=== PATIENT | male | born 1950 | race American Indian/Alaskan Native ===

== ENCOUNTER 2017-09-01 09:31 | Emergency (ER) | payer MEDICARE ==
[2017-09-01] MEDS ORDERED: ZOFRAN IV ONE ×2 (10:14→13:23)
--- NOTE | 2017-09-01 10:19 | Emergency Department Report ---
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 Patient presented to the ER complaining of left flank and left upper quadrant pain this been going on and off for one week. Patient stated that he suffer from constipation. He denied any fever or vomiting. No no diarrhea also. MD Complaint: abdominal pain, flank pain -: week(s) Location: LUQ, L flank Radiation: none Migration to: no migration Severity: moderate Quality: cramping Consistency: intermittent Improves With: bowel movement Associated Symptoms: nausea, constipation - Related Data Home Medications Medication Instructions Recorded Confirmed Last Taken Amiodarone [Cordarone 200 MG TAB] 200 mg PO DAILY 08/12/17 08/12/17 Unknown Arformoterol Nebu [Brovana Nebu] 15 mcg IH Q12HR 08/12/17 08/12/17 Unknown Aspirin [Adult Low Dose Aspirin EC] 81 mg PO DAILY 08/12/17 08/12/17 Unknown AtorvaSTATin [Lipitor] 40 mg PO QHS 08/12/17 08/12/17 Unknown Digoxin [Digox] 125 mcg PO DAILY 08/12/17 08/12/17 Unknown Docusate Sodium [Colace CAP] 100 mg PO BID PRN 08/12/17 08/12/17 Unknown Ferrous Sulfate [Feosol 325 MG tab] 325 mg PO QDAY 08/12/17 08/12/17 Unknown Fluticasone/Vilanterol [Breo 1 each IH DAILY 08/12/17 08/12/17 Unknown Ellipta 200-25 Mcg INH] Furosemide [Lasix] 80 mg PO DAILY 08/12/17 08/12/17 Unknown Ipratropium/Albuterol Sulfate 1 ampul IH Q6HR 08/12/17 08/12/17 Unknown [DUONEB *Not for PRN Use*] Lactulose [Cephulac] 20 gm PO Q12H 08/12/17 08/12/17 Unknown Linagliptin [Tradjenta] 5 mg PO QDAY 08/12/17 08/12/17 Unknown Montelukast Sodium [Singulair] 5 mg PO DAILY 08/12/17 08/12/17 Unknown Omeprazole 40 mg PO BID 08/12/17 08/12/17 Unknown Quetiapine Fumarate [SEROquel] 100 mg PO QDAY 08/12/17 08/12/17 Unknown Rivaroxaban [Xarelto] 20 mg PO QDAY 08/12/17 08/12/17 Unknown oxyCODONE /ACETAMINOPHEN [Percocet 1 tab PO Q6HR PRN 08/12/17 08/12/17 Unknown 5/325 mg] Previous Rx's Medication Instructions Recorded Last Taken Type Furosemide [Lasix TAB] 40 mg PO QDAY #30 tablet 08/16/17 Unknown Rx Levofloxacin [Levaquin TAB] 500 mg PO QDAY #5 tablet 08/16/17 Unknown Rx Metoprolol [Lopressor TAB] 50 mg PO BID #60 tablet 08/16/17 Unknown Rx Potassium Chloride 10 meq PO QDAY #30 capsule.er 08/16/17 Unknown Rx Lactulose 10 gm PO DAILY PRN #150 ml 09/01/17 Unknown Rx Allergies Allergy/AdvReac Type Severity Reaction Status Date / Time ibuprofen Allergy Unknown Verified 08/12/17 14:35 tetracycline Allergy Unknown Verified 08/12/17 14:35 ED Review of Systems ROS: Stated complaint: ABDOMINAL PAIN Other details as noted in HPI Comment: All other systems reviewed and negative Constitutional: denies: chills, fever Respiratory: denies: cough, orthopnea, shortness of breath, SOB with exertion, wheezing Cardiovascular: denies: chest pain, palpitations Gastrointestinal: abdominal pain, nausea. denies: vomiting, diarrhea, constipation, hematemesis, melena, hematochezia Genitourinary: denies: urgency, dysuria Musculoskeletal: denies: back pain Neurological: denies: headache, weakness ED Past Medical Hx - Past Medical History Hx Hypertension: Yes Hx Heart Attack/AMI: No Hx Congestive Heart Failure: Yes Hx Diabetes: Yes Hx Deep Vein Thrombosis: No Hx Pulmonary Embolism: No Hx Asthma: No Hx COPD: Yes Hx Tuberculosis: No Additional medical history: afib - Surgical History Hx Coronary Stent: No Hx Pacemaker: No Hx Internal Defibrillator: No Additional Surgical History: Right BKA - Social History Smoking Status: Current Every Day Smoker - Medications Home Medications: Home Medications Medication Instructions Recorded Confirmed Last Taken Type Amiodarone [Cordarone 200 MG TAB] 200 mg PO DAILY 08/12/17 08/12/17 Unknown History Arformoterol Nebu [Brovana Nebu] 15 mcg IH Q12HR 08/12/17 08/12/17 Unknown History Aspirin [Adult Low Dose Aspirin EC] 81 mg PO DAILY 08/12/17 08/12/17 Unknown History AtorvaSTATin [Lipitor] 40 mg PO QHS 08/12/17 08/12/17 Unknown History Digoxin [Digox] 125 mcg PO DAILY 08/12/17 08/12/17 Unknown History Docusate Sodium [Colace CAP] 100 mg PO BID PRN 08/12/17 08/12/17 Unknown History Ferrous Sulfate [Feosol 325 MG tab] 325 mg PO QDAY 08/12/17 08/12/17 Unknown History Fluticasone/Vilanterol [Breo 1 each IH DAILY 08/12/17 08/12/17 Unknown History Ellipta 200-25 Mcg INH] Furosemide [Lasix] 80 mg PO DAILY 08/12/17 08/12/17 Unknown History Ipratropium/Albuterol Sulfate 1 ampul IH Q6HR 08/12/17 08/12/17 Unknown History [DUONEB *Not for PRN Use*] Lactulose [Cephulac] 20 gm PO Q12H 08/12/17 08/12/17 Unknown History Linagliptin [Tradjenta] 5 mg PO QDAY 08/12/17 08/12/17 Unknown History Montelukast Sodium [Singulair] 5 mg PO DAILY 08/12/17 08/12/17 Unknown History Omeprazole 40 mg PO BID 08/12/17 08/12/17 Unknown History Quetiapine Fumarate [SEROquel] 100 mg PO QDAY 08/12/17 08/12/17 Unknown History Rivaroxaban [Xarelto] 20 mg PO QDAY 08/12/17 08/12/17 Unknown History oxyCODONE /ACETAMINOPHEN [Percocet 1 tab PO Q6HR PRN 08/12/17 08/12/17 Unknown History 5/325 mg] Furosemide [Lasix TAB] 40 mg PO QDAY #30 tablet 08/16/17 Unknown Rx Levofloxacin [Levaquin TAB] 500 mg PO QDAY #5 tablet 08/16/17 Unknown Rx Metoprolol [Lopressor TAB] 50 mg PO BID #60 tablet 08/16/17 Unknown Rx Potassium Chloride 10 meq PO QDAY #30 capsule.er 08/16/17 Unknown Rx Lactulose 10 gm PO DAILY PRN #150 ml 09/01/17 Unknown Rx ED Physical Exam - General Limitations: Physical Limitation General appearance: alert, in no apparent distress - Head Head exam: Present: atraumatic, normocephalic, normal inspection - Eye Eye exam: Present: normal appearance - ENT ENT exam: Present: normal exam, normal orophraynx, mucous membranes moist - Neck Neck exam: Present: normal inspection, full ROM. Absent: tenderness, meningismus, lymphadenopathy, thyromegaly - Respiratory Respiratory exam: Present: normal lung sounds bilaterally. Absent: respiratory distress, wheezes, rales, rhonchi, stridor, chest wall tenderness, accessory muscle use, decreased breath sounds, prolonged expiratory - Cardiovascular Cardiovascular Exam: Present: regular rate, normal rhythm, normal heart sounds - GI/Abdominal GI/Abdominal exam: Present: soft, normal bowel sounds. Absent: distended, tenderness, guarding, rebound, rigid, organomegaly, mass, bruit, pulsatile mass , hernia - Extremities Exam Extremities exam: Present: normal inspection, full ROM, normal capillary refill - Back Exam Back exam: Present: normal inspection, full ROM. Absent: tenderness, CVA tenderness (R), CVA tenderness (L), muscle spasm - Neurological Exam Neurological exam: Present: alert, oriented X3, CN II-XII intact, reflexes normal - Skin Skin exam: Present: warm, intact, normal color ED Course Vital Signs 09/01/17 09/01/17 09/01/17 10:03 10:16 10:30 Temperature Pulse Rate 74 78 Respiratory 17 19 Rate Blood Pressure 105/56 110/65 110/65 O2 Sat by Pulse Oximetry 09/01/17 09/01/17 09/01/17 10:46 11:00 11:16 Temperature Pulse Rate 73 72 72 Respiratory 13 14 15 Rate Blood Pressure 104/54 104/54 97/59 O2 Sat by Pulse Oximetry 09/01/17 09/01/17 09/01/17 11:30 11:46 12:00 Temperature 98.6 F Pulse Rate 79 77 76 Respiratory 12 18 21 Rate Blood Pressure 97/59 109/58 102/51 O2 Sat by Pulse 100 Oximetry 09/01/17 09/01/17 09/01/17 12:16 12:30 12:46 Temperature Pulse Rate 73 74 74 Respiratory 17 16 16 Rate Blood Pressure 106/52 106/52 128/57 O2 Sat by Pulse Oximetry 09/01/17 09/01/17 09/01/17 15:01 15:52 16:00 Temperature Pulse Rate Respiratory Rate Blood Pressure 105/71 105/71 105/71 O2 Sat by Pulse 97 97 Oximetry 09/01/17 09/01/17 09/01/17 16:16 16:30 16:46 Temperature Pulse Rate Respiratory Rate Blood Pressure 105/71 105/71 105/71 O2 Sat by Pulse 98 97 98 Oximetry 09/01/17 09/01/17 09/01/17 17:00 17:16 17:30 Temperature Pulse Rate Respiratory Rate Blood Pressure 105/71 105/71 105/71 O2 Sat by Pulse 97 96 96 Oximetry 09/01/17 09/01/17 09/01/17 17:46 18:00 18:16 Temperature Pulse Rate Respiratory Rate Blood Pressure 105/71 120/62 120/62 O2 Sat by Pulse 98 96 97 Oximetry 09/01/17 18:30 Temperature Pulse Rate Respiratory Rate Blood Pressure 120/62 O2 Sat by Pulse 99 Oximetry ED Medical Decision Making - Lab Data Result diagrams: 09/01/17 10:35 09/01/17 10:35 - Radiology Data Radiology results: report reviewed CT abdomen and pelvis with contrast showed a left renal cyst and no acute abnormalities. Critical care attestation.: If time is entered above; I have spent that time in minutes in the direct care of this critically ill patient, excluding procedure time. ED Disposition Clinical Impression: Abdominal pain, Constipation Disposition: DC-01 TO HOME OR SELFCARE Is pt being admited?: No Condition: Stable Instructions: Constipation (ED), High Fiber Diet (ED), Abdominal Pain (ED) Prescriptions: Lactulose 10 gm PO DAILY PRN #150 ml PRN Reason: Constipation Referrals: PRIMARY CARE, [Primary Care Provider] - 3-5 Days
[2017-09-01 11:05] LABS: Hematocrit 25.7 % (35.5-45.6); Hemoglobin 8.5 gm/dl (11.8-15.2); Mean Corpuscular HGB Conc 33 % (32-34); Mean Corpuscular Hemoglobin 29 pg (28-32); Mean Corpuscular Volume 89 fl (84-94); Platelet Count 303 K/mm3 (140-440)
[2017-09-01 11:06] LABS: Red Cell Distribution Width 25.5 % (13.2-15.2)
[2017-09-01 11:15] LABS: Alanine Aminotransferase 12 units/L (7-56); BUN/Creatinine Ratio 20; Bilirubin,Direct < 0.2 mg/dL (0-0.2); Blood Urea Nitrogen 10 mg/dL (9-20); Calcium 9.1 mg/dL (8.4-10.2); Hemolysis Index 15; Lipase 12 units/L (13-60)
[2017-09-01] MEDS ORDERED: MORPHINE IV ONE (13:23)
[2017-09-01 14:41] LABS: Anisocytosis 2+; Hypochromasia 1+; Platelet Estimate Consistent w Auto; Total Cells Counted 100
--- NOTE | 2017-09-01 18:35 | Cat Scan Report ---
FINAL REPORT EXAM: CT ABDOMEN PELVIS W CON HISTORY: abdominal pain TECHNIQUE: CT of the abdomen and pelvis intravenous contrast PRIORS: No prior studies available for comparison FINDINGS: There limitation in the exam due to artifact secondary to patient body habitus. There is significant artifact along the right side of the abdomen wall. Within the limits of the study no focal abnormalities identified within the liver spleen or pancreas. The upper pole left kidney there is a 5.5 x 6.1 centimeter cystic focus. No definitive solid components or nodularity identified. There is a probable thin septation. Right kidney demonstrates no focal abnormality. There is no evidence for hydronephrosis bilaterally. No evidence for colonic or small bowel distention. No free-fluid or free air identified. The abdominal aorta is normal in caliber. Urinary bladder is unremarkable. IMPRESSION: Left renal cyst No acute abnormality identified
[2017-09-01 21:25] VITALS: BP 156/44
== END 2017-09-01 21:23 | disposition home or self-care (01) ==
LOC: ED 09:31
DX: R10.12 Left upper quadrant pain (principal); K59.00 Constipation, unspecified; R11.0 Nausea; J44.9 Chronic obstructive pulmonary disease, unspecified; I48.91 Unspecified atrial fibrillation; I11.0 Hypertensive heart disease with heart failure; I50.9 Heart failure, unspecified; E11.9 Type 2 diabetes mellitus without complications; F17.200 Nicotine dependence, unspecified, uncomplicated; Z88.6 Allergy status to analgesic agent; Z88.1 Allergy status to other antibiotic agents; Z89.511 Acquired absence of right leg below knee; Z74.01 Bed confinement status
CPT/HCPCS: 36415; 74177; 80048; 80074; 83690; 85007; 85025; 96365; 96375; 96376; 99284; J2270; J2405; Q9967; 96374

== ENCOUNTER 2017-10-28 13:22 | Inpatient (IN) | payer MEDICARE ==
--- NOTE | 2017-10-28 14:43 | Emergency Department Report ---
ED Recheck HPI - General Chief Complaint: Recheck/Abnormal Lab/Rx Stated Complaint: LOW H&H Time Seen by Provider: 10/28/17 14:18 Source: patient, EMS Mode of arrival: Stretcher Limitations: No Limitations - History of Present Illness Initial Comments: Patient said he was called by his doctor office to go to the emergency room due to low hemoglobin. He said he's been tired recently and this morning he had chest pain which has resolved currently. Patient said he had colonoscopy 3 weeks ago showed that he was bleeding from his lower G.I. tract. MD Complaint: abnormal lab -: Gradual Returns Today for: CBOAL Symptoms Since Prior Visit: no new symptoms Context: called for abnorm lab res Associated Symptoms: chest pain, shortness of breath - Related Data Home Medications Medication Instructions Recorded Confirmed Last Taken Amiodarone [Cordarone 200 MG TAB] 200 mg PO DAILY 08/12/17 09/30/17 Unknown Arformoterol Nebu [Brovana Nebu] 15 mcg IH Q12HR 08/12/17 09/30/17 Unknown AtorvaSTATin [Lipitor] 40 mg PO QHS 08/12/17 09/30/17 Unknown Digoxin [Digox] 125 mcg PO DAILY 08/12/17 09/30/17 Unknown Docusate Sodium [Colace CAP] 100 mg PO BID PRN 08/12/17 09/30/17 Unknown Linagliptin [Tradjenta] 5 mg PO QDAY 08/12/17 09/30/17 Unknown Montelukast Sodium [Singulair] 5 mg PO DAILY 08/12/17 09/30/17 Unknown Lactulose 15 ml PO DAILY PRN 09/30/17 09/30/17 Unknown Omeprazole 20 mg PO BID 09/30/17 09/30/17 Unknown Pregabalin [Lyrica] 75 mg PO BID 09/30/17 09/30/17 Unknown metOLazone [Metolazone] 2.5 mg PO 3XW 09/30/17 09/30/17 Unknown Ipratropium [place] [Atrovent Hfa] 2 puff IH QID 10/28/17 10/28/17 Unknown Ipratropium/Albuterol Sulfate 1 ampul IH Q6H PRN 10/28/17 10/28/17 Unknown [DUONEB *Not for PRN Use*] Previous Rx's Medication Instructions Recorded Last Taken Type Metoprolol [Lopressor TAB] 50 mg PO BID #60 tablet 08/16/17 Unknown Rx Potassium Chloride 10 meq PO QDAY #30 capsule.er 08/16/17 Unknown Rx Clopidogrel [Plavix] 75 mg PO QDAY #30 tablet 10/14/17 Unknown Rx ISOSORBIDE MONOnitrate [Imdur ER] 30 mg PO QDAY #30 tablet 10/14/17 Unknown Rx Rivaroxaban [Xarelto] 20 mg PO QDAY #30 tablet 10/14/17 Unknown Rx oxyCODONE /ACETAMINOPHEN [Percocet 1 tab PO TID PRN #10 tablet 10/14/17 Unknown Rx 5/325 mg] Allergies Allergy/AdvReac Type Severity Reaction Status Date / Time ibuprofen Allergy Unknown Verified 08/12/17 14:35 tetracycline Allergy Unknown Verified 08/12/17 14:35 ED Review of Systems ROS: Stated complaint: LOW H&H Other details as noted in HPI Comment: All other systems reviewed and negative Constitutional: denies: chills, fever Eyes: denies: eye pain ENT: denies: ear pain, dental pain Respiratory: shortness of breath. denies: cough Cardiovascular: chest pain, dyspnea on exertion Endocrine: no symptoms reported Gastrointestinal: denies: abdominal pain, nausea, vomiting, diarrhea Genitourinary: denies: urgency, dysuria Musculoskeletal: denies: back pain, joint swelling Skin: denies: rash, lesions Neurological: denies: headache, weakness, numbness Psychiatric: denies: anxiety, depression Hematological/Lymphatic: denies: easy bleeding, easy bruising ED Past Medical Hx - Past Medical History Hx Hypertension: Yes Hx Heart Attack/AMI: No Hx Congestive Heart Failure: Yes Hx Diabetes: Yes Hx Deep Vein Thrombosis: No Hx Pulmonary Embolism: Yes Hx Asthma: No Hx COPD: Yes Hx Tuberculosis: No Additional medical history: afib - Surgical History Hx Coronary Stent: No Hx Pacemaker: No Hx Internal Defibrillator: No Additional Surgical History: Right BKA - Social History Smoking Status: Never Smoker Substance Use Type: None - Medications Home Medications: Home Medications Medication Instructions Recorded Confirmed Last Taken Type Amiodarone [Cordarone 200 MG TAB] 200 mg PO DAILY 08/12/17 09/30/17 Unknown History Arformoterol Nebu [Brovana Nebu] 15 mcg IH Q12HR 08/12/17 09/30/17 Unknown History AtorvaSTATin [Lipitor] 40 mg PO QHS 08/12/17 09/30/17 Unknown History Digoxin [Digox] 125 mcg PO DAILY 08/12/17 09/30/17 Unknown History Docusate Sodium [Colace CAP] 100 mg PO BID PRN 08/12/17 09/30/17 Unknown History Linagliptin [Tradjenta] 5 mg PO QDAY 08/12/17 09/30/17 Unknown History Montelukast Sodium [Singulair] 5 mg PO DAILY 08/12/17 09/30/17 Unknown History Metoprolol [Lopressor TAB] 50 mg PO BID #60 tablet 08/16/17 09/30/17 Unknown Rx Potassium Chloride 10 meq PO QDAY #30 capsule.er 08/16/17 09/30/17 Unknown Rx Lactulose 15 ml PO DAILY PRN 09/30/17 09/30/17 Unknown History Omeprazole 20 mg PO BID 09/30/17 09/30/17 Unknown History Pregabalin [Lyrica] 75 mg PO BID 09/30/17 09/30/17 Unknown History metOLazone [Metolazone] 2.5 mg PO 3XW 09/30/17 09/30/17 Unknown History Clopidogrel [Plavix] 75 mg PO QDAY #30 tablet 10/14/17 Unknown Rx ISOSORBIDE MONOnitrate [Imdur ER] 30 mg PO QDAY #30 tablet 10/14/17 Unknown Rx Rivaroxaban [Xarelto] 20 mg PO QDAY #30 tablet 10/14/17 Unknown Rx oxyCODONE /ACETAMINOPHEN [Percocet 1 tab PO TID PRN #10 tablet 10/14/17 Unknown Rx 5/325 mg] Ipratropium [place] [Atrovent Hfa] 2 puff IH QID 10/28/17 10/28/17 Unknown History Ipratropium/Albuterol Sulfate 1 ampul IH Q6H PRN 10/28/17 10/28/17 Unknown History [DUONEB *Not for PRN Use*] ED Physical Exam - General Limitations: No Limitations General appearance: alert, in no apparent distress, obese - Head Head exam: Present: atraumatic, normocephalic, normal inspection - Eye Eye exam: Present: PERRL, EOMI, other (Pale conjunctivae) Pupils: Present: normal accommodation - ENT ENT exam: Present: normal exam, normal orophraynx, mucous membranes moist - Neck Neck exam: Present: normal inspection, full ROM. Absent: tenderness - Respiratory Respiratory exam: Present: normal lung sounds bilaterally. Absent: respiratory distress, wheezes, rales, rhonchi, stridor - Cardiovascular Cardiovascular Exam: Present: regular rate, normal rhythm, normal heart sounds - GI/Abdominal GI/Abdominal exam: Present: soft, distended, normal bowel sounds. Absent: tenderness, guarding, rebound, rigid - Rectal Rectal exam: Present: normal inspection, normal rectal tone, heme (-) stool, other ([place] was Ms. Morgan RN.). Absent: black stool, bloody stool, hemorrhoids, mass, tenderness - Extremities Exam Extremities exam: Present: normal inspection, full ROM, normal capillary refill. Absent: tenderness - Back Exam Back exam: Present: normal inspection, full ROM. Absent: tenderness - Neurological Exam Neurological exam: Present: alert, oriented X3, CN II-XII intact - Psychiatric Psychiatric exam: Present: normal affect, normal mood - Skin Skin exam: Present: warm, dry, intact, normal color. Absent: rash ED Course Vital Signs 10/28/17 10/28/17 10/28/17 14:03 14:05 14:15 Temperature 98.6 F Pulse Rate 62 40 L 60 Respiratory 15 15 16 Rate Blood Pressure 104/46 102/47 O2 Sat by Pulse 97 96 100 Oximetry 10/28/17 10/28/17 10/28/17 14:30 14:45 15:00 Temperature Pulse Rate 60 70 57 L Respiratory 18 14 12 Rate Blood Pressure 102/49 112/43 117/61 O2 Sat by Pulse 100 100 Oximetry 10/28/17 10/28/17 10/28/17 15:15 15:31 15:45 Temperature Pulse Rate 58 L 58 L 55 L Respiratory 14 11 L 15 Rate Blood Pressure 117/61 109/62 119/58 O2 Sat by Pulse 100 100 99 Oximetry 10/28/17 15:54 Temperature 98.6 F Pulse Rate Respiratory Rate Blood Pressure O2 Sat by Pulse Oximetry - Reevaluation(s) Reevaluation #1: 10/28/17 16:12 I consulted the hospitalist on-call Dr. Rush. He will admit patient to the hospital for further evaluation and management. ED Recheck MDM - Differential Diagnosis Recheck of Abnormal Lab Critical Care Time: Yes Critical care time in (mins) excluding proc time.: 50 Critical care attestation.: If time is entered above; I have spent that time in minutes in the direct care of this critically ill patient, excluding procedure time. ED Disposition Clinical Impression: Symptomatic anemia, Shortness of breath, Severe anemia Chest pain Qualifiers: Chest pain type: unspecified Qualified Code(s): R07.9 - Chest pain, unspecified Obese Qualifiers: Obesity type: unspecified obesity type Obesity classification: adult class 3 ( BMI >= 40) Serious obesity comorbidity presence: unspecified whether serious comorbidity present Body mass index: BMI 45.0-49.9 Qualified Code(s): E66.01 - Morbid (severe) obesity due to excess calories Disposition: OP ADMIT IP TO THIS HOSP Is pt being admited?: Yes Does the pt Need Aspirin: No Condition: Stable Instructions: Chest Pain (ED) Referrals: PRIMARY CARE, [Primary Care Provider] - 3-5 Days Time of Disposition: 15:40
--- NOTE | 2017-10-28 15:07 | XRay Report ---
AP CHEST: HISTORY: Weakness Heart size and pulmonary vessels are borderline. The lungs are clear. No evidence for pneumonia, CHF or pneumothorax. IMPRESSION: Borderline heart size and pulmonary venous structures. No CHF.
[2017-10-28 15:10] LABS: Basophils # (Auto) 0.1 K/mm3 (0.0-0.1); Basophils % (Auto) 0.8 % (0.0-1.8); Eosinophils # (Auto) 0.4 K/mm3 (0.0-0.4); Eosinophils % (Auto) 4.5 % (0.0-4.3); Hemoglobin 6.4 gm/dl (11.8-15.2); Lymphocytes # (Auto) 1.6 K/mm3 (1.2-5.4); Lymphocytes % (Auto) 17.5 % (13.4-35.0); Mean Corpuscular HGB Conc 33 % (32-34); Mean Corpuscular Volume 77 fl (84-94); Monocytes # (Auto) 0.9 K/mm3 (0.0-0.8); Monocytes % (Auto) 9.7 % (0.0-7.3); Platelet Count 295 K/mm3 (140-440); Red Blood Count 2.55 M/mm3 (3.65-5.03)
[2017-10-28 15:16] LABS: Hematocrit 19.7 % (35.5-45.6); Mean Corpuscular Hemoglobin 25 pg (28-32); Red Cell Distribution Width 23.7 % (13.2-15.2)
[2017-10-28 15:23] LABS: INR 1.51 (0.87-1.13)
[2017-10-28 15:24] LABS: Partial Thromboplastin Time 51.6 Sec. (24.2-36.6)
[2017-10-28 15:29] LABS: Alanine Aminotransferase 10 units/L (7-56); BUN/Creatinine Ratio 17; Blood Urea Nitrogen 15 mg/dL (9-20); Calcium 8.9 mg/dL (8.4-10.2); Hemolysis Index 0
[2017-10-28] MEDS ORDERED: NACL 0.9% 500 ML 500 ML IV ONE (15:41)
--- NOTE | 2017-10-28 15:47 | History and Physical Report ---
History of Present Illness Chief complaint: My doctor sent me in History of present illness: 67 YO Male with MO, A Fib with RVR on therapeutic anticoagulation, Bipolar, Obesity Hypoventilation, MO, DM, Anemia HTN, CHF, COPD presents to ED for evaluation. Pt states that he has experienced generalized weakness over the past 2 weeks. Pt was seen by his primary care physician and was found to have Anemia. Pt instructed to seek further care at [facility]. Pt seen and evaluated in ED and found to have Symptomatic Anemia, CHF, and Obesity Hypventilation. Pt acknowledges shortness of breath, decreased exercise tolerance. Pt denies fever , chills, palpitations, syncope, prolonged travel/immobility, unintentional weight loss, or night sweats, noncompliance with medication, BRBPR, dark/tarry stools, skin rash, unintentional weight loss, night sweats, or recent ill contacts. No evidence of active or acute bleeding at time of exam. PRBC transfusion initiated in ED. Pt symptoms improved with therapy. Pt admitted to MIN unit with Remote telemetry. Past History Past Medical History: atrial fib, COPD, diabetes, heart failure, hypertension Past Surgical History: Other (Right BKA) Social history: single. denies: smoking, alcohol abuse, prescription drug abuse Family history: diabetes, hypertension Medications and Allergies Allergies Allergy/AdvReac Type Severity Reaction Status Date / Time ibuprofen Allergy Unknown Verified 08/12/17 14:35 tetracycline Allergy Unknown Verified 08/12/17 14:35 Home Medications Medication Instructions Recorded Confirmed Last Taken Type Amiodarone [Cordarone 200 MG TAB] 200 mg PO DAILY 08/12/17 10/28/17 Unknown History Arformoterol Nebu [Brovana Nebu] 15 mcg IH Q12HR 08/12/17 10/28/17 Unknown History AtorvaSTATin [Lipitor] 40 mg PO QHS 08/12/17 10/28/17 Unknown History Digoxin [Digox] 125 mcg PO DAILY 08/12/17 10/28/17 Unknown History Docusate Sodium [Colace CAP] 100 mg PO BID PRN 08/12/17 10/28/17 Unknown History Linagliptin [Tradjenta] 5 mg PO QDAY 08/12/17 10/28/17 Unknown History Montelukast Sodium [Singulair] 5 mg PO HS 08/12/17 10/28/17 Unknown History Metoprolol [Lopressor TAB] 50 mg PO BID #60 tablet 08/16/17 10/28/17 Unknown Rx Potassium Chloride 10 meq PO QDAY #30 capsule.er 08/16/17 10/28/17 Unknown Rx Lactulose 15 ml PO DAILY PRN 09/30/17 10/28/17 Unknown History Omeprazole 20 mg PO BID 09/30/17 10/28/17 Unknown History Pregabalin [Lyrica] 75 mg PO BID 09/30/17 10/28/17 Unknown History metOLazone [Metolazone] 2.5 mg PO 3XW 09/30/17 10/28/17 Unknown History Clopidogrel [Plavix] 75 mg PO QDAY #30 tablet 10/14/17 10/28/17 Unknown Rx ISOSORBIDE MONOnitrate [Imdur ER] 30 mg PO QDAY #30 tablet 10/14/17 10/28/17 Unknown Rx Rivaroxaban [Xarelto] 20 mg PO QDAY #30 tablet 10/14/17 10/28/17 Unknown Rx oxyCODONE /ACETAMINOPHEN [Percocet 1 tab PO TID PRN #10 tablet 10/14/17 Unknown Rx 5/325 mg] Ipratropium [place] [Atrovent Hfa] 2 puff IH QID 10/28/17 10/28/17 Unknown History Ipratropium/Albuterol Sulfate 1 ampul IH Q6H PRN 10/28/17 10/28/17 Unknown History [DUONEB *Not for PRN Use*] Review of Systems Constitutional: weakness, malaise, no weight loss, no fever, no chills, no sweats, no night sweats Ears, nose, mouth and throat: no ear pain, no ear discharge, no tinnitis, no decreased hearing, no nose pain, no nasal congestion Cardiovascular: no chest pain, no orthopnea, no palpitations, no rapid/ irregular heart beat, no edema Respiratory: no cough, no cough with sputum, no excessive sputum, no hemoptysis , no shortness of breath Gastrointestinal: no abdominal pain, no nausea, no vomiting, no diarrhea, no change in bowel habits, no hematemesis, no coffee ground emesis, no BRBPR, no melena, no hematochezia, no loss of appetite Genitourinary Male: no hematuria, no flank pain, no discharge, no urinary frequency, no urinary hesitancy, no nocturia Rectal: no pain, no incontinence, no bleeding Musculoskeletal: no neck stiffness, no neck pain, no shooting arm pain, no arm numbness/tingling, no low back pain, no shooting leg pain Integumentary: no rash, no pruritis, no redness, no sores, no wounds, no jaundice Neurological: no head injury, no transient paralysis, no paralysis, no weakness , no parathesias Psychiatric: no anxiety, no memory loss, no insomnia, no hypersomnia, no change in appetite Endocrine: no cold intolerance, no heat intolerance, no polyphagia, no excessive thirst, no polydipsia, no polyuria, no nocturia, no excessive sweating Hematologic/Lymphatic: no easy bruising, no easy bleeding, no lymphadenopathy, no lymphedema Allergic/Immunologic: no urticaria, no allergic rhinitis, no wheezing, no persistent infections, no anaphylaxis, no angioedema Exam - Constitutional Vitals: Temp Pulse Resp BP Pulse Ox 98.6 F 40 L 15 104/46 96 10/28/17 14:05 10/28/17 14:05 10/28/17 14:05 10/28/17 14:05 10/28/17 14:05 General appearance: Present: mild distress, obese - EENT Eyes: Present: PERRL ENT: hearing intact, clear oral mucosa - Neck Neck: Present: supple, normal ROM - Respiratory Respiratory effort: normal Respiratory: bilateral: diminished - Cardiovascular Heart Sounds: Present: S1 & S2. Absent: rub, click - Extremities Extremities: pulses symmetrical, No edema Peripheral Pulses: within normal limits - Abdominal General gastrointestinal: Present: soft, non-tender, non-distended, normal bowel sounds Male genitourinary: Present: normal - Integumentary Integumentary: Present: clear, warm, dry - Musculoskeletal Musculoskeletal: gait normal, strength equal bilaterally - Psychiatric Psychiatric: appropriate mood/affect, intact judgment & insight - Neurologic Neurologic: CNII-XII intact, moves all extremities Results - Labs CBC & Chem 7: 10/28/17 21:00 10/28/17 14:54 Labs: Abnormal lab results 10/28/17 10/28/17 10/28/17 Range/Units 14:54 14:54 14:54 RBC 2.55 L (3.65-5.03) M/mm3 Hgb 6.4 L (11.8-15.2) gm/dl Hct 19.7 L* (35.5-45.6) % MCV 77 L (84-94) fl MCH 25 L (28-32) pg RDW 23.7 H (13.2-15.2) % [place] % (Auto) 9.7 H (0.0-7.3) % Eos % (Auto) 4.5 H (0.0-4.3) % [place] # 0.9 H (0.0-0.8) K/mm3 PT 18.8 H (12.2-14.9) Sec. INR 1.51 H (0.87-1.13) APTT 51.6 H (24.2-36.6) Sec. Glucose 125 H (75-100) mg/dL Crossmatch 10/28/17 Range/Units 14:54 RBC (3.65-5.03) M/mm3 Hgb (11.8-15.2) gm/dl Hct (35.5-45.6) % MCV (84-94) fl MCH (28-32) pg RDW (13.2-15.2) % [place] % (Auto) (0.0-7.3) % Eos % (Auto) (0.0-4.3) % [place] # (0.0-0.8) K/mm3 PT (12.2-14.9) Sec. INR (0.87-1.13) APTT (24.2-36.6) Sec. Glucose (75-100) mg/dL Crossmatch See Detail Assessment and Plan - Patient Problems (1) Diastolic CHF Current Visit: Yes Status: Acute Qualifiers: Heart failure chronicity: acute on chronic Qualified Code(s): I50.33 - Acute on chronic diastolic (congestive) heart failure Plan to address problem: Remote telemetry, strict I/O, daily weight, monitor uop q shift, chest x ray, supplemental oxygen, afterload reduction, bmp (2) Symptomatic anemia Current Visit: Yes Status: Acute Plan to address problem: CBC, PRBC transfusion, supportive care. repeat cbc, diuresis if signs/symptoms of fluid overload. (3) Atrial fibrillation Current Visit: No Status: Acute Qualifiers: Atrial fibrillation type: persistent Qualified Code(s): I48.1 - Persistent atrial fibrillation Plan to address problem: Resume rate control with Amiodarone, continue therapeutic anticoagulation, remote telemetry monitoring. (4) Obesity hypoventilation syndrome Current Visit: No Status: Acute Plan to address problem: Supplemental oxygen, Chest X ray, NIPPV as clinically indicated, balanced diet, increased physical activity at discharge, outpatient bariatric surgery, outpatient sleep study. (5) COPD (chronic obstructive pulmonary disease) Current Visit: No Status: Chronic Qualifiers: COPD type: unspecified COPD Qualified Code(s): J44.9 - Chronic obstructive pulmonary disease, unspecified Plan to address problem: Supplemental oxygen, nebulizer therapy, chest x ray, NIPPV as clinically indicated (6) DVT prophylaxis Current Visit: No Status: Acute Plan to address problem: Resume therapeutic anticoagulation.
[2017-10-28] MEDS ORDERED: NACL 0.9% 500 ML 500 ML IV NR (15:49)
[2017-10-28] MEDS ORDERED: PROVENTIL IH PRN (15:51)
[2017-10-28] MEDS ORDERED: ZOFRAN IV PRN (15:51)
[2017-10-28] MEDS ORDERED: TYLENOL PO PRN (15:51)
[2017-10-28] MEDS ORDERED: SODIUM CHLORIDE FLUSH SYRINGE 10 ML IV PRN (15:51)
[2017-10-28] MEDS ORDERED: CEPHULAC PR PRN (18:11)
[2017-10-28] MEDS ORDERED: COLACE PO PRN (18:11)
[2017-10-28] MEDS ORDERED: DUONEB *Not for PRN Use IH (18:11)
[2017-10-28 21:16] LABS: Hematocrit 22.2 % (35.5-45.6); Hemoglobin 6.9 gm/dl (11.8-15.2)
[2017-10-28] MEDS: PROTONIX PO SCH (21:44)
[2017-10-28] MEDS: LOPRESSOR PO SCH (21:44)
[2017-10-28] MEDS: LYRICA PO SCH (21:44)
[2017-10-28] MEDS: SINGULAIR PO SCH (21:45)
[2017-10-28] MEDS: PERCOCET 5/325 PO PRN (21:47)
[2017-10-28] MEDS ORDERED: NON-FORMULARY (Omeprazole [Omeprazole] 20 MG) PO SCH (22:00)
[2017-10-28] MEDS ORDERED: IPRATROPIUM BROMIDE IH SCH (22:00)
[2017-10-28] MEDS ORDERED: MONTELUKAST SODIUM 5 MG PO SCH (22:00)
[2017-10-28] MEDS: ATROVENT IH SCH (22:52)
[2017-10-28] MEDS: BROVANA NEBU IH SCH (22:53)
[2017-10-28] MEDS: SODIUM CHLORIDE FLUSH SYRINGE 10 ML IV SCH (23:01)
[2017-10-29] MEDS: ATROVENT IH SCH ×2 (07:26→14:56)
[2017-10-29] MEDS: BROVANA NEBU IH SCH ×2 (07:27→19:29)
[2017-10-29] MEDS ORDERED: ZAROXOLYN PO SCH (10:00)
[2017-10-29] MEDS ORDERED: NON-FORMULARY (Potassium Chloride [Potassium Chloride] 10 MEQ) PO SCH (10:00)
[2017-10-29] MEDS: PLAVIX PO SCH (10:13)
[2017-10-29] MEDS: XARELTO PO SCH (10:13)
[2017-10-29] MEDS: LANOXIN PO SCH (10:14)
[2017-10-29] MEDS: PROTONIX PO SCH ×2 (10:15→22:43)
[2017-10-29] MEDS: IMDUR PO SCH (10:16)
[2017-10-29] MEDS: CORDARONE PO SCH (10:16)
[2017-10-29] MEDS: LOPRESSOR PO SCH ×2 (10:18→22:44)
[2017-10-29] MEDS: LYRICA PO SCH ×2 (10:22→22:42)
[2017-10-29] MEDS: K-DUR PO SCH (10:23)
--- NOTE | 2017-10-29 10:35 | Progress Note ---
Assessment and Plan Assessment and plan: 67 YO Male with MO, A Fib with RVR on therapeutic anticoagulation, Bipolar, Obesity Hypoventilation, MO, DM, Anemia HTN, CHF, COPD sent to ED by his doctor for Gen weakness x 2 weeks, his PCP found that his hg was low He also admitted to dyspnea on exertion and decreased exercise tolerance Past History Past Medical History: atrial fib, COPD, diabetes, heart failure, hypertension Symptomatic anemia sp 3 units prbc supportive care. repeat cbc, Gi consult as patient is on JONATHAN at home suspect Gi bleed given dark red stools, GI consult, hold blood thinners Diastolic CHF appears euvolemic, no orthopnea Atrialfibrillation Resume rate control with Amiodarone, hold therapeutic anticoagulation, remote telemetry monitoring. Obesity hypoventilation syndrome Supplemental oxygen COPD (chronic obstructive pulmonary disease) Supplemental oxygen, nebulizer therapy DVT prophylaxis scds in light of GI bleed History Interval history: Review of systems Constitutional: No fevers, no malaise, no joint pains CVS: No chest pain, no orthopnea, no dyspnea on exertion, no pedal edema GI: No abdominal pain, no diarrhea, no vomiting, no constipation Respiratory: admits mild ROSARIO, no wheezing, no coughing Hospitalist Physical - Physical exam Narrative exam: General.: Appears well, no distress, nontoxic HEENT: Moist mucous membranes, extraocular muscles intact, no lymphadenopathy Neck: supple Cardiac: S1-S2 heard Lungs: clear to auscultation bilaterally Abdomen: soft , nontender, nondistended, bowel sounds positive Extremities: no edema clubbing or cyanosis Skin: no rash or lesions Neurologic: no gross focal deficits Psych: appropriate behavior, appropriate mood, corporative, judgment intact - Constitutional Vitals: Temp Pulse Resp BP Pulse Ox 98.7 F 67 18 104/39 98 10/29/17 10:26 10/29/17 10:26 10/29/17 10:26 10/29/17 10:26 10/29/17 10:26 General appearance: Present: mild distress, obese Results - Labs CBC & Chem 7: 10/29/17 14:31 10/28/17 14:54 Labs: Laboratory Last Values WBC 9.1 K/mm3 (4.5-11.0) 10/28/17 14:54 RBC 2.55 M/mm3 (3.65-5.03) L 10/28/17 14:54 Hgb 6.9 gm/dl (11.8-15.2) L 10/28/17 21:00 Hct 22.2 % (35.5-45.6) L 10/28/17 21:00 MCV 77 fl (84-94) L 10/28/17 14:54 MCH 25 pg (28-32) L 10/28/17 14:54 MCHC 33 % (32-34) 10/28/17 14:54 RDW 23.7 % (13.2-15.2) H 10/28/17 14:54 Plt Count 295 K/mm3 (140-440) 10/28/17 14:54 Lymph % (Auto) 17.5 % (13.4-35.0) 10/28/17 14:54 [place] % (Auto) 9.7 % (0.0-7.3) H 10/28/17 14:54 Eos % (Auto) 4.5 % (0.0-4.3) H 10/28/17 14:54 Baso % (Auto) 0.8 % (0.0-1.8) 10/28/17 14:54 Lymph # 1.6 K/mm3 (1.2-5.4) 10/28/17 14:54 [place] # 0.9 K/mm3 (0.0-0.8) H 10/28/17 14:54 Eos # 0.4 K/mm3 (0.0-0.4) 10/28/17 14:54 Baso # 0.1 K/mm3 (0.0-0.1) 10/28/17 14:54 Seg Neutrophils % 67.5 % (40.0-70.0) 10/28/17 14:54 Seg Neutrophils # 6.2 K/mm3 (1.8-7.7) 10/28/17 14:54 PT 18.8 Sec. (12.2-14.9) H 10/28/17 14:54 INR 1.51 (0.87-1.13) H 10/28/17 14:54 APTT 51.6 Sec. (24.2-36.6) H 10/28/17 14:54 Sodium 137 mmol/L (137-145) 10/28/17 14:54 Potassium 4.7 mmol/L (3.6-5.0) 10/28/17 14:54 Chloride 99.1 mmol/L (98-107) 10/28/17 14:54 Carbon Dioxide 27 mmol/L (22-30) 10/28/17 14:54 Anion Gap 16 mmol/L 10/28/17 14:54 BUN 15 mg/dL (9-20) 10/28/17 14:54 Creatinine 0.9 mg/dL (0.8-1.5) 10/28/17 14:54 Estimated GFR > 60 ml/min 10/28/17 14:54 BUN/Creatinine Ratio 17 % 10/28/17 14:54 Glucose 125 mg/dL (75-100) H 10/28/17 14:54 POC Glucose 106 (70-105) H 10/29/17 07:50 Calcium 8.9 mg/dL (8.4-10.2) 10/28/17 14:54 Magnesium 2.10 mg/dL (1.7-2.3) 10/28/17 14:54 Total Bilirubin 0.30 mg/dL (0.1-1.2) 10/28/17 14:54 AST 14 units/L (5-40) 10/28/17 14:54 ALT 10 units/L (7-56) 10/28/17 14:54 Alkaline Phosphatase 97 units/L (35-129) 10/28/17 14:54 Troponin T 0.028 ng/mL (0.00-0.029) 10/28/17 14:54 NT-Pro-B Natriuret Pep 1616 pg/mL (0-900) H 10/28/17 16:22 Total Protein 7.3 g/dL (6.3-8.2) 10/28/17 14:54 Albumin 4.0 g/dL (3.9-5) 10/28/17 14:54 Albumin/Globulin Ratio 1.2 % 10/28/17 14:54 Blood Type A POSITIVE 10/28/17 14:54 Antibody Screen Negative 10/28/17 14:54 Crossmatch See Detail 10/28/17 14:54
[2017-10-29] MEDS ORDERED: AFLURIA QUAD 2018-2019 SYRINGE IM ONE (12:00)
[2017-10-29] MEDS: PERCOCET 5/325 PO PRN ×2 (12:45→20:56)
[2017-10-29] MEDS: CEPHULAC PO PRN (13:32)
[2017-10-29] MEDS: SODIUM CHLORIDE FLUSH SYRINGE 10 ML IV SCH (13:49)
[2017-10-29] MEDS ORDERED: DUONEB *Not for PRN Use IH SCH (14:00)
--- NOTE | 2017-10-29 14:31 | Gastroenterology Consultation ---
History of Present Illness - Reason for Consult Consult date: 10/29/17 Anemia Requesting physician: SHARON CUENCA - History of Present Illness The patient is a 67 yo male with severe anemia admitted from his PCP. He says he saw "dark stools" about 10 days ago, but none since then. He is on plavix and xarelto (and had 2 stents placed in the last few weeks). He had a recent EGD/flex here that showed an single AVM (treated with APC) and large hemorrhoids (a colonoscopy was negative earlier this year at [facility] by Kimberly Borja/ Johan). He has no abdominal pain, N/V, hematemesis, or dysphagia. He denies NSAID use at home, and he is using protonix but not MVI therapy. Past History Past Medical History: atrial fib, CAD (PTCA/Stent 09/2017), COPD, diabetes, heart failure, hypertension Past Surgical History: Other (Right BKA) Social history: single. denies: smoking, alcohol abuse, prescription drug abuse Family history: diabetes, hypertension Medications and Allergies Allergies Allergy/AdvReac Type Severity Reaction Status Date / Time ibuprofen Allergy Unknown Verified 08/12/17 14:35 tetracycline Allergy Unknown Verified 08/12/17 14:35 Home Medications Medication Instructions Recorded Confirmed Last Taken Type Amiodarone [Cordarone 200 MG TAB] 200 mg PO DAILY 08/12/17 10/28/17 Unknown History Arformoterol Nebu [Brovana Nebu] 15 mcg IH Q12HR 08/12/17 10/28/17 Unknown History AtorvaSTATin [Lipitor] 40 mg PO QHS 08/12/17 10/28/17 Unknown History Digoxin [Digox] 125 mcg PO DAILY 08/12/17 10/28/17 Unknown History Docusate Sodium [Colace CAP] 100 mg PO BID PRN 08/12/17 10/28/17 Unknown History Linagliptin [Tradjenta] 5 mg PO QDAY 08/12/17 10/28/17 Unknown History Montelukast Sodium [Singulair] 5 mg PO HS 08/12/17 10/28/17 Unknown History Metoprolol [Lopressor TAB] 50 mg PO BID #60 tablet 08/16/17 10/28/17 Unknown Rx Potassium Chloride 10 meq PO QDAY #30 capsule.er 08/16/17 10/28/17 Unknown Rx Lactulose 15 ml PO DAILY PRN 09/30/17 10/28/17 Unknown History Omeprazole 20 mg PO BID 09/30/17 10/28/17 Unknown History Pregabalin [Lyrica] 75 mg PO BID 09/30/17 10/28/17 Unknown History metOLazone [Metolazone] 2.5 mg PO 3XW 09/30/17 10/28/17 Unknown History Clopidogrel [Plavix] 75 mg PO QDAY #30 tablet 10/14/17 10/28/17 Unknown Rx ISOSORBIDE MONOnitrate [Imdur ER] 30 mg PO QDAY #30 tablet 10/14/17 10/28/17 Unknown Rx Rivaroxaban [Xarelto] 20 mg PO QDAY #30 tablet 10/14/17 10/28/17 Unknown Rx oxyCODONE /ACETAMINOPHEN [Percocet 1 tab PO TID PRN #10 tablet 10/14/17 Unknown Rx 5/325 mg] Ipratropium [place] [Atrovent Hfa] 2 puff IH QID 10/28/17 10/28/17 Unknown History Ipratropium/Albuterol Sulfate 1 ampul IH Q6H PRN 10/28/17 10/28/17 Unknown History [DUONEB *Not for PRN Use*] Active Meds: Active Medications Acetaminophen (Tylenol) 650 mg PO Q4H PRN PRN Reason: Pain MILD(1-3)/Fever >100.5/SENIOR Albuterol (Proventil) 2.5 mg IH Q4HRT PRN PRN Reason: Shortness Of Breath Albuterol/Ipratropium (Duoneb *Not For Prn Use*) 1 ampul IH Q6HRT [facility] Amiodarone HCl (Cordarone) 200 mg PO DAILY [facility] Last Admin: 10/29/17 10:16 Dose: 200 mg Arformoterol Tartrate (Brovana Nebu) 15 mcg IH Q12HRT [facility] Last Admin: 10/29/17 07:27 Dose: 15 mcg Atorvastatin Calcium (Lipitor) 40 mg PO QHS [facility] Last Admin: 10/28/17 21:45 Dose: 40 mg Budesonide (Pulmicort) 0.5 mg IH Q12HRT [facility] Clopidogrel Bisulfate (Plavix) 75 mg PO QDAY [facility] Last Admin: 10/29/17 10:13 Dose: 75 mg Digoxin (Lanoxin) 0.125 mg PO DAILY [facility] Last Admin: 10/29/17 10:14 Dose: 0.125 mg Docusate Sodium (Colace) 100 mg PO BID PRN PRN Reason: Constipation Ipratropium [place] (Atrovent) 0.5 mg IH TIDRT [facility] Last Admin: 10/29/17 07:26 Dose: 0.5 mg Isosorbide Mononitrate (Imdur) 30 mg PO QDAY [facility] Last Admin: 10/29/17 10:16 Dose: 30 mg Lactulose (Cephulac) 10 gm PO DAILY PRN PRN Reason: Constipation Last Admin: 10/29/17 13:32 Dose: 10 gm Metolazone (Zaroxolyn) 2.5 mg PO MoWeFr [facility] Last Admin: 10/29/17 10:16 Dose: 2.5 mg Metoprolol Tartrate (Lopressor) 50 mg PO BID [facility] Last Admin: 10/29/17 10:18 Dose: Not Given Montelukast Sodium (Singulair) 5 mg PO QHS [facility] Last Admin: 10/28/17 21:45 Dose: 5 mg Ondansetron HCl (Zofran) 4 mg IV Q8H PRN PRN Reason: Nausea And Vomiting Oxycodone/Acetaminophen (Percocet 5/325) 1 tab PO Q8H PRN PRN Reason: Pain, Moderate (4-6) Last Admin: 10/29/17 12:45 Dose: 1 tab Pantoprazole Sodium (Protonix) 20 mg PO BID [facility] Last Admin: 10/29/17 10:15 Dose: 20 mg Potassium Chloride (K-Dur) 10 meq PO QDAY [facility] Last Admin: 10/29/17 10:23 Dose: 10 meq Pregabalin (Lyrica) 75 mg PO BID [facility] Last Admin: 10/29/17 10:22 Dose: 75 mg Rivaroxaban (Xarelto) 20 mg PO QDDIAB [facility]; Protocol Last Admin: 10/29/17 10:13 Dose: 20 mg Sodium Chloride (Sodium Chloride Flush Syringe 10 Ml) 10 ml IV BID [facility] Last Admin: 10/29/17 13:49 Dose: 10 ml Sodium Chloride (Sodium Chloride Flush Syringe 10 Ml) 10 ml IV PRN PRN PRN Reason: LINE FLUSH I HAVE REVIEWED AND RECONCILED MEDICATIONS Review of Systems - Review of Systems All systems: negative (as noted in the HPI.) Exam - Constitutional Vital Signs: Temp Pulse Resp BP Pulse Ox 98.7 F 67 18 104/39 98 10/29/17 10:26 10/29/17 10:26 10/29/17 10:26 10/29/17 10:26 10/29/17 10:26 General appearance: no acute distress, obese - EENT Eyes: PERRL, EOM intact ENT: hearing intact, poor dentition, no thrush - Neck Neck: supple, normal ROM - Respiratory Respiratory effort: normal Respiratory: bilateral: CTA - Cardiovascular Rhythm: regular Heart Sounds: Present: S1 & S2 Extremities: no ischemia, No edema - Gastrointestinal General gastrointestinal: Present: soft, non-tender, non-distended - Integumentary Integumentary: Present: clear, warm, dry - Neurologic Neurological: alert and oriented x3 - Labs CBC & Chem 7: 10/28/17 21:00 10/28/17 14:54 Lab Results: Laboratory Results - last 24 hr 10/28/17 10/28/17 10/28/17 14:54 14:54 14:54 WBC 9.1 RBC 2.55 L Hgb 6.4 L Hct 19.7 L* MCV 77 L MCH 25 L MCHC 33 RDW 23.7 H Plt Count 295 Lymph % (Auto) 17.5 [place] % (Auto) 9.7 H Eos % (Auto) 4.5 H Baso % (Auto) 0.8 Lymph # 1.6 [place] # 0.9 H Eos # 0.4 Baso # 0.1 Seg Neutrophils % 67.5 Seg Neutrophils # 6.2 PT 18.8 H INR 1.51 H APTT 51.6 H Sodium 137 Potassium 4.7 Chloride 99.1 Carbon Dioxide 27 Anion Gap 16 BUN 15 Creatinine 0.9 Estimated GFR > 60 BUN/Creatinine Ratio 17 Glucose 125 H POC Glucose Calcium 8.9 Magnesium 2.10 Total Bilirubin 0.30 AST 14 ALT 10 Alkaline Phosphatase 97 Troponin T 0.028 NT-Pro-B Natriuret Pep Total Protein 7.3 Albumin 4.0 Albumin/Globulin Ratio 1.2 Blood Type Antibody Screen Crossmatch 10/28/17 10/28/17 10/28/17 14:54 16:22 21:00 WBC RBC Hgb 6.9 L Hct 22.2 L MCV MCH MCHC RDW Plt Count Lymph % (Auto) [place] % (Auto) Eos % (Auto) Baso % (Auto) Lymph # [place] # Eos # Baso # Seg Neutrophils % Seg Neutrophils # PT INR APTT Sodium Potassium Chloride Carbon Dioxide Anion Gap BUN Creatinine Estimated GFR BUN/Creatinine Ratio Glucose POC Glucose Calcium Magnesium Total Bilirubin AST ALT Alkaline Phosphatase Troponin T NT-Pro-B Natriuret Pep 1616 H Total Protein Albumin Albumin/Globulin Ratio Blood Type A POSITIVE Antibody Screen Negative Crossmatch See Detail 10/28/17 10/29/17 10/29/17 21:30 07:50 11:45 WBC RBC Hgb Hct MCV MCH MCHC RDW Plt Count Lymph % (Auto) [place] % (Auto) Eos % (Auto) Baso % (Auto) Lymph # [place] # Eos # Baso # Seg Neutrophils % Seg Neutrophils # PT INR APTT Sodium Potassium Chloride Carbon Dioxide Anion Gap BUN Creatinine Estimated GFR BUN/Creatinine Ratio Glucose POC Glucose 177 H 106 H 136 H Calcium Magnesium Total Bilirubin AST ALT Alkaline Phosphatase Troponin T NT-Pro-B Natriuret Pep Total Protein Albumin Albumin/Globulin Ratio Blood Type Antibody Screen Crossmatch Assessment and Plan - Patient Problems (1) Acute blood loss anemia Current Visit: Yes Status: Acute Plan to address problem: - Hx of negative colonoscopy 2018 ([facility]). - EGD/Flex 2018 (+) gastric AVM (treated with APC) and large hemorrhoids. - Will given PO supplementation of iron/MVI and continue protonix. - Recent stenting with need for plavix + xarelto with underlying severe cardiopulmonary disease makes endoscopy more difficult. - Will trend hct over next 24 hours, and if needed, repeat EGD/colonoscopy. Will need capsule endoscopy as an outpatient.
[2017-10-29 15:11] LABS: Hematocrit 26.9 % (35.5-45.6); Hemoglobin 8.5 gm/dl (11.8-15.2)
[2017-10-29] MEDS: PULMICORT IH SCH (19:29)
[2017-10-29] MEDS: SINGULAIR PO SCH (22:43)
[2017-10-29] MEDS: DUONEB *Not for PRN Use IH SCH (23:48)
[2017-10-30] MEDS: PULMICORT IH SCH ×2 (08:01→19:38)
[2017-10-30] MEDS: DUONEB *Not for PRN Use IH SCH ×3 (08:01→19:42)
[2017-10-30] MEDS: BROVANA NEBU IH SCH ×2 (08:03→19:39)
[2017-10-30] MEDS: XARELTO PO SCH (08:55)
[2017-10-30] MEDS: LYRICA PO SCH ×2 (09:37→22:00)
[2017-10-30] MEDS: SODIUM CHLORIDE FLUSH SYRINGE 10 ML IV SCH ×2 (09:38→22:00)
[2017-10-30] MEDS: LANOXIN PO SCH (09:39)
[2017-10-30] MEDS: LOPRESSOR PO SCH ×2 (09:40→22:00)
[2017-10-30] MEDS: IMDUR PO SCH (09:40)
[2017-10-30] MEDS: K-DUR PO SCH (09:46)
[2017-10-30] MEDS: PLAVIX PO SCH (09:46)
[2017-10-30] MEDS: PROTONIX PO SCH ×2 (09:46→22:00)
[2017-10-30] MEDS: CORDARONE PO SCH (09:47)
[2017-10-30] MEDS: PERCOCET 5/325 PO PRN ×2 (13:22→19:56)
[2017-10-30] MEDS: CEPHULAC PO PRN (13:30)
--- NOTE | 2017-10-30 14:00 | Gastroenterology Progress Note ---
Assessment and Plan 1. Iron deficiency anemia 2. CAD s/p stent placement on plavix 3. Residential anticoagulation use (eliquis) 4. History of AVM -Anemia stable and pt denies overt gi bleeding. will hold off on endoscopy unless signs of overt bleeding/drop in h/h given co-morbidities and anticoagulation/anti-platelet requirement (recent stent placement). He has known gastric avm's, and may have small bowel lesions as well causing anemia -will likely need outpatient capsule -iron replacement therapy Subjective Date of service: 10/30/17 Principal diagnosis: anemia Interval history: pt seen and examined. No bm's since admission. denies abd pain. tolerating po. Objective - Exam Narrative Exam: Gen: NAD, obese male CV: RRR Lungs: CTAB, non labored Abd: soft, obese, nt, +bs - Constitutional Vitals: Temp Pulse Resp BP Pulse Ox 98.3 F 66 20 119/54 98 10/30/17 13:22 10/30/17 13:34 10/30/17 08:33 10/30/17 13:34 10/30/17 13:34 - Labs CBC & Chem 7: 10/29/17 14:31 10/28/17 14:54 Labs: Laboratory Results - last 24 hr 10/29/17 10/29/17 10/29/17 14:31 16:18 20:59 Hgb 8.5 L Hct 26.9 L POC Glucose 104 151 H 10/30/17 10/30/17 07:19 11:34 Hgb Hct POC Glucose 101 173 H
--- NOTE | 2017-10-30 16:23 | Discharge Summary ---
Providers - Providers Date of Admission: 10/28/17 15:52 Attending physician: MOLLY GOMEZ MD 10/29/17 11:33 Consult to Physician [CONS] Routine Comment: Consulting Provider: NELSON MOMIN Physician Instructions: Reason For Exam: gi bleed, on blood thinner Primary care physician: [employer]BER [employer]PERATOR Hospitalization Condition: Stable Hospital course: 67 YO Male with MO, A Fib with RVR on therapeutic anticoagulation, Bipolar, Obesity Hypoventilation, MO, DM, Anemia HTN, CHF, COPD sent to ED by his doctor for Gen weakness x 2 weeks, his PCP found that his hg was low, He also admitted to dyspnea on exertion and decreased exercise tolerance. The patient also complained of blood in his stool over a week prior. The patient was on anticoagulation for atrial fibrillation. The patient was admitted to the hospital, he received multiple units of packed red blood cells. He improved. He did not have any further episodes of bleeding. He was seen by gastroenterology who stated that GI bleed had resolved. And that's she should follow up in clinic with them for pill endoscopy. Diagnoses Acute blood loss anemia GI bleed, likely lower GI bleed, suspect colonic bleeding Diastolic CHF, chronic Atrial fibrillation with hypercoagulable states Obesity hypoventilation syndrome Chronic respiratory failure with hypoxia, on oxygen at all times COPD Obesity Disposition: DC-01 TO HOME OR SELFCARE Time spent for discharge: 33 minutes Core Measure Documentation - Palliative Care Palliative Care/ Comfort Measures: Not Applicable - Core Measures Any of the following diagnoses?: none Exam - Constitutional Vitals: Temp Pulse Resp BP Pulse Ox 98.3 F 68 20 119/54 98 10/30/17 13:22 10/30/17 16:11 10/30/17 16:11 10/30/17 13:34 10/30/17 13:34 General appearance: Present: no acute distress, well-nourished - EENT Eyes: Present: PERRL ENT: hearing intact, clear oral mucosa - Neck Neck: Present: supple, normal ROM - Respiratory Respiratory effort: normal Respiratory: bilateral: CTA - Cardiovascular Heart Sounds: Present: S1 & S2. Absent: rub, click - Extremities Extremities: pulses symmetrical, No edema Peripheral Pulses: within normal limits - Abdominal General gastrointestinal: Present: soft, non-tender, non-distended, normal bowel sounds Male genitourinary: Present: normal - Integumentary Integumentary: Present: clear, warm, dry - Musculoskeletal Musculoskeletal: gait normal, strength equal bilaterally - Psychiatric Psychiatric: appropriate mood/affect, intact judgment & insight - Neurologic Neurologic: CNII-XII intact, moves all extremities Plan Follow up with: PRIMARY CARE,MD [Primary Care Provider] - 3-5 Days Prescriptions: oxyCODONE /ACETAMINOPHEN [Percocet 5/325 mg] 1 tab PO TID PRN #10 tablet PRN Reason: Pain
--- NOTE | 2017-10-30 17:04 | Progress Note ---
Hospitalist Physical - Constitutional Vitals: Temp Pulse Resp BP Pulse Ox 98.3 F 68 20 119/54 98 10/30/17 13:22 10/30/17 16:11 10/30/17 16:11 10/30/17 13:34 10/30/17 13:34 General appearance: Present: no acute distress, well-nourished Results - Labs CBC & Chem 7: 10/29/17 14:31 10/28/17 14:54 Labs: Laboratory Last Values WBC 9.1 K/mm3 (4.5-11.0) 10/28/17 14:54 RBC 2.55 M/mm3 (3.65-5.03) L 10/28/17 14:54 Hgb 8.5 gm/dl (11.8-15.2) L 10/29/17 14:31 Hct 26.9 % (35.5-45.6) L 10/29/17 14:31 MCV 77 fl (84-94) L 10/28/17 14:54 MCH 25 pg (28-32) L 10/28/17 14:54 MCHC 33 % (32-34) 10/28/17 14:54 RDW 23.7 % (13.2-15.2) H 10/28/17 14:54 Plt Count 295 K/mm3 (140-440) 10/28/17 14:54 Lymph % (Auto) 17.5 % (13.4-35.0) 10/28/17 14:54 [place] % (Auto) 9.7 % (0.0-7.3) H 10/28/17 14:54 Eos % (Auto) 4.5 % (0.0-4.3) H 10/28/17 14:54 Baso % (Auto) 0.8 % (0.0-1.8) 10/28/17 14:54 Lymph # 1.6 K/mm3 (1.2-5.4) 10/28/17 14:54 [place] # 0.9 K/mm3 (0.0-0.8) H 10/28/17 14:54 Eos # 0.4 K/mm3 (0.0-0.4) 10/28/17 14:54 Baso # 0.1 K/mm3 (0.0-0.1) 10/28/17 14:54 Seg Neutrophils % 67.5 % (40.0-70.0) 10/28/17 14:54 Seg Neutrophils # 6.2 K/mm3 (1.8-7.7) 10/28/17 14:54 PT 18.8 Sec. (12.2-14.9) H 10/28/17 14:54 INR 1.51 (0.87-1.13) H 10/28/17 14:54 APTT 51.6 Sec. (24.2-36.6) H 10/28/17 14:54 Sodium 137 mmol/L (137-145) 10/28/17 14:54 Potassium 4.7 mmol/L (3.6-5.0) 10/28/17 14:54 Chloride 99.1 mmol/L (98-107) 10/28/17 14:54 Carbon Dioxide 27 mmol/L (22-30) 10/28/17 14:54 Anion Gap 16 mmol/L 10/28/17 14:54 BUN 15 mg/dL (9-20) 10/28/17 14:54 Creatinine 0.9 mg/dL (0.8-1.5) 10/28/17 14:54 Estimated GFR > 60 ml/min 10/28/17 14:54 BUN/Creatinine Ratio 17 % 10/28/17 14:54 Glucose 125 mg/dL (75-100) H 10/28/17 14:54 POC Glucose 115 (70-105) H 10/30/17 16:13 Calcium 8.9 mg/dL (8.4-10.2) 10/28/17 14:54 Magnesium 2.10 mg/dL (1.7-2.3) 10/28/17 14:54 Total Bilirubin 0.30 mg/dL (0.1-1.2) 10/28/17 14:54 AST 14 units/L (5-40) 10/28/17 14:54 ALT 10 units/L (7-56) 10/28/17 14:54 Alkaline Phosphatase 97 units/L (35-129) 10/28/17 14:54 Troponin T 0.028 ng/mL (0.00-0.029) 10/28/17 14:54 NT-Pro-B Natriuret Pep 1616 pg/mL (0-900) H 10/28/17 16:22 Total Protein 7.3 g/dL (6.3-8.2) 10/28/17 14:54 Albumin 4.0 g/dL (3.9-5) 10/28/17 14:54 Albumin/Globulin Ratio 1.2 % 10/28/17 14:54 Blood Type A POSITIVE 10/28/17 14:54 Antibody Screen Negative 10/28/17 14:54 Crossmatch See Detail 10/28/17 14:54
[2017-10-30 20:47] VITALS: BP 126/54
[2017-10-30] MEDS: SINGULAIR PO SCH (22:00)
== END 2017-10-30 21:00 | DRG 378 ==
LOC: ED 13:22 → 2B-ACE 15:52
PROVIDERS: ADMIT Internal Medicine; ATTEND Internal Medicine
PROC: 30233N1 Transfusion of Nonautologous Red Blood Cells into Peripheral Vein, Percutaneous Approach (ICD-10-PCS; principal; 2017-10-28)
DX: K92.2 Gastrointestinal hemorrhage, unspecified (principal); I48.1 Persistent atrial fibrillation; Z68.41 Body mass index [BMI] 40.0-44.9, adult; E66.2 Morbid (severe) obesity with alveolar hypoventilation; D62 Acute posthemorrhagic anemia; J96.11 Chronic respiratory failure with hypoxia; I50.32 Chronic diastolic (congestive) heart failure; F31.9 Bipolar disorder, unspecified; E11.9 Type 2 diabetes mellitus without complications; I11.0 Hypertensive heart disease with heart failure; J44.9 Chronic obstructive pulmonary disease, unspecified; I25.10 Atherosclerotic heart disease of native coronary artery without angina pectoris; Z71.3 Dietary counseling and surveillance; Z79.01 Long term (current) use of anticoagulants; Z89.511 Acquired absence of right leg below knee; Z82.49 Family history of ischemic heart disease and other diseases of the circulatory system; Z83.3 Family history of diabetes mellitus; Z88.6 Allergy status to analgesic agent; Z88.1 Allergy status to other antibiotic agents; Z86.711 Personal history of pulmonary embolism; Z99.81 Dependence on supplemental oxygen
CPT/HCPCS: 36415; 71045; 80053; 82962; 83735; 83880; 84484; 85018; 85025; 85610; 85730; 86850; 86900; 86901; 86920; 90686; 93005; 93010; 94640; 94760; A9270-GY; J7040; P9016